=== PATIENT | female | born 1955 | race Caucasian/White ===

== ENCOUNTER 2018-11-21 06:23 | Emergency (ER) | payer MEDICAID ==
[~2018-11-21] VITALS: Ht 152.4 cm; Wt 44.3 kg
[~2018-11-21 06:23] MED LIST: ACET-1600 PO; ACYC-57 PO; DOCU100C33 PO; METH750T87 PO; OXYC-302 PO
[2018-11-21 06:26] VITALS: BP 129/84
--- NOTE | 2018-11-21 07:00 | NUR ---
FIRST CONTACT WITH PT. PT RESTING ON GUBASSAM. [place]. PT HAS REDNESS AND TEARING OF RIGHT EYE. PER PT, "I WOKE UP THIS MORNING, MADE SOME COFFEE AND WAS MEDITATING. I GOT UP TO THE BATHROOM AND SAW MY EYE LIKE THIS, SO I CAME IN. ON A SCALE OF 1-10 THE PAIN IS A 2." PT DENIES LOSS OF VISION, HEADACHE, OR DOUBLE VISION. ALL SAFETY MEASURES IN PLACE AND CALL LIGHT WITHIN REACH. NO NEEDS EXPRESSED AT THIS TIME.
--- NOTE | 2018-11-21 07:12 | NUR ---
Patient given discharge instructions and they have confirmed that they understand the instructions. Patient ambulatory with steady gait. Pt left with all personal belongings.
== END 2018-11-21 07:14 | disposition home or self-care (01) ==
LOC: ED 07:12
DX: H11.31 Conjunctival hemorrhage, right eye (principal)
CPT/HCPCS: 99283

== ENCOUNTER 2020-06-29 08:35 | Emergency (ER) | payer MEDICAID ==
[~2020-06-29] VITALS: Ht 12.7 cm; Wt 44.5 kg
[2020-06-29] MEDS ORDERED: KETOROLAC 30 MG/1 ML IM ONE (09:00)
[2020-06-29] MEDS ORDERED: LORazepam 1MG TABLET PO ONE (09:00)
[2020-06-29] MEDS ORDERED: LORazepam 1MG TABLET ONE (09:04)
[2020-06-29] MEDS ORDERED: KETOROLAC 30 MG/1 ML ONE (09:04)
[2020-06-29 09:31] VITALS: BP 143/79
--- NOTE | 2020-06-29 09:34 | NUR ---
here for chronic neck pain exacerbated by yoga. full rom but stiff, no numbness/tingling down arms, c/o numbness back of neck but sts this is chronic/constant. a&ox4 gcs 15 meds per mar awaiting rad restuls call mary. as
--- NOTE | 2020-06-29 10:23 | NUR ---
ct no acute abnormalities, oob to bathroom gait steady, recheck. as
== END 2020-06-29 10:49 | disposition home or self-care (01) ==
LOC: ED 08:56
DX: G89.29 Other chronic pain (principal); M47.892 Other spondylosis, cervical region; M54.2 Cervicalgia
CPT/HCPCS: 72125; 96372; 99284; J1885; J7512